=== PATIENT | female | born 1985 | race African-American/Black ===

== ENCOUNTER 2022-11-04 11:17 | Day surgery (SDC) | payer OTHER ==
[2022-11-04] MEDS ORDERED: IRON SUCROSE INJECTION 200 MG in SODIUM CHLORIDE 100 ML IVPB ONE (12:00)
[2022-11-04 13:01] VITALS: BP 123/64; PULSE 84; RESP 18; TEMP 98.7
== END 2022-11-04 13:08 | disposition home or self-care (01) ==
LOC: FM/S 11:17 → FINFUSION 11:17
PROVIDERS: ATTEND Family Medicine
PROC: 3E033GC Introduction of Other Therapeutic Substance into Peripheral Vein, Percutaneous Approach (ICD-10-PCS; principal; 2022-11-04)
DX: D50.9 Iron deficiency anemia, unspecified (principal)
CPT/HCPCS: 81025; 96365; J1756

== ENCOUNTER 2022-11-11 11:09 | Day surgery (SDC) | payer OTHER ==
[2022-11-11] MEDS ORDERED: FERRIC CARBOXYMALTOSE 750 MG in SODIUM CHLORIDE 250 ML IVPB SCH (11:30)
[2022-11-11 13:52] VITALS: BP 130/68; PULSE 84; RESP 16; TEMP 97.8
== END 2022-11-11 13:30 | disposition home or self-care (01) ==
LOC: FINFUSION 11:09 → FM/S 11:11 → FINFUSION 13:30
PROVIDERS: ATTEND Family Medicine
PROC: 3E033GC Introduction of Other Therapeutic Substance into Peripheral Vein, Percutaneous Approach (ICD-10-PCS; principal; 2022-11-11)
DX: D50.9 Iron deficiency anemia, unspecified (principal)
CPT/HCPCS: 96365; J1439